=== PATIENT | male | born 1995 | race Caucasian/White ===

== ENCOUNTER 2024-12-19 17:00 | Emergency (ER) | payer OTHER, SELFPAY ==
--- NOTE | ~2024-12-19 | XR_ITS ---
EXAMINATION: XR knee RT 3V, 12/19/2024 17:15 CDT HISTORY: Nontraumatic knee pain COMPARISON: No comparisons available. Findings: No acute fracture or malalignment. No significant degenerative changes. Soft tissues unremarkable. Impression: No acute fracture or malalignment. Reviewed, dictated and finalized at location P. Impression: No acute fracture or malalignment.
[2024-12-19 17:00] VITALS: BP 139/91; PULSE 84; RESP 18; TEMP 36.4; O2SAT 99
--- NOTE | 2024-12-19 17:20 | ED.LOWEXIN ---
HPI - Extremity Injury (Lower) General Chief Complaint: Extremity Injury, Lower Stated Complaint: right knee pain Time Seen by Provider: 12/19/24 17:14 Source: patient Mode of arrival: ambulatory Limitations: no limitations History of Present Illness HPI Narrative: Patient complaining of right knee pain for the last 9 months got worse over the last month, patient is telling me that he been working hard and long hours for months. He denies any specific trauma. History of right knee surgery 15 years ago, bone spur. Patient report feeling pain at the back of the right knee and anterior medially only when he flex the knee and goes up stairs. Patient reports working too much and long hours for long time, physical job Patient denies any fever, chills, nausea, vomiting Patient's significant other telling me that they came to our emergency room because he does not have a family physician Related Data Allergies Allergy/AdvReac Type Severity Reaction Status Date / Time No Known Allergies Allergy Verified 12/19/24 17:18 Review of Systems Review of Systems: All systems reviewed & are unremarkable except as noted in HPI and below Exam Narrative: General appearance: Well-developed, well-nourished Skin: Normal color Head: Normocephalic, nontraumatic Eyes: Clear conjunctiva Musculoskeletal: Right knee exam showed probably slightly swollen compared to the left 1 otherwise no bruises, no deformity, no rash, no erythema, , limited flexion up to 70 degree Neurologic: Alert and oriented ?3, [employer] is normal as tested, no gross motor deficit Course Vital Signs Vital signs: Vital Signs Temperature 36.4 C L 12/19/24 17:00 Pulse Rate 84 12/19/24 17:00 Respiratory Rate 18 12/19/24 17:00 Blood Pressure 139/91 H 12/19/24 17:00 Pulse Oximetry 99 12/19/24 17:00 Oxygen Delivery Room Air 12/19/24 17:00 Temperature 36.4 C L 12/19/24 17:00 Pulse Rate 84 12/19/24 17:00 Respiratory Rate 18 12/19/24 17:00 Blood Pressure 139/91 H 12/19/24 17:00 Pulse Oximetry 99 12/19/24 17:00 Oxygen Delivery Room Air 12/19/24 17:00 MDM - Extremity Injury (Lower) MDM Narrative Medical decision making narrative: Patient came with chronic right knee pain, worse over the last 4 weeks No specific trauma Vital signs are stable Physical examination as above Differential diagnosis include patellofemoral pain syndrome, meniscus tear, iliotibial band syndrome, hamstring strain, arthritis, strain/sprain Differential Diagnosis Differential diagnosis: Likely other (As above) Imaging Data Radiologist's impression: Impressions Knee X-Ray 12/19/24 17:27 Impression: No acute fracture or malalignment. Critical Care Time Critical Care Time Critical Care Time: No Discharge Plan Discharge Clinical Impression: Knee pain Patient Disposition: Home Condition: Stable Instructions: Knee Pain (ED) Additional Instructions: Return if symptoms are worsening , call orthopedic for appointment, take Tylenol as as needed for aches and pain, continue home medications. Patient Language: Tunisian Prescriptions: New naproxen [Naprosyn] 500 mg tablet 500 mg PO BID PRN (Reason: pain) Qty: 20 0RF Follow-up/Referrals: Den Pedroza MD [Physician, Orthopedics] - 12/20/24 Fabricio Lopez MD [Physician, Internal Medicine]
--- NOTE | 2024-12-19 17:38 | PC.NURSE ---
PT REFUSED KNEE IMMOBILIZER
== END 2024-12-19 17:41 | disposition home or self-care (01) ==
LOC: CHSED 17:32
PROVIDERS: Emergency Provider Emergency Medicine; Referring Provider Internal Medicine
DX: M25.561 Pain in right knee (principal)
CPT/HCPCS: 73562; 99283

== ENCOUNTER 2024-12-28 14:06 | Outpatient (CLI) | payer OTHER, SELFPAY ==
[2024-12-28 14:20] LABS: Hematocrit 44.9 % (40.0-54.0); Hemoglobin 14.8 g/dL (14.0-18.0); Immature Granulocyte Percent A 0.3 % (0.0-0.0); Lymphocytes Absolute Auto 2.53 K/mm3 (1.10-4.50); Mean Corpuscular HGB Conc 33.0 g/dL (32-36); Mean Corpuscular Hemoglobin 28.6 pg (27.0-31.0); Mean Corpuscular Volume 86.8 fL (78.0-102.0); Nucleated Red Blood Cells Absolute Auto 0.00 K/mm3 (0.00-0.00); Nucleated Red Blood Cells Perc 0.0 % (0-0.0); Platelet Count Result 257 K/mm3 (150-420); Red Blood Count 5.17 M/mm3 (4.70-6.10); White Blood Count 7.5 K/mm3 (4.8-10.8)
[2024-12-28 15:42] LABS: Alanine Aminotransferase 28 U/L (6-50); Albumin Level 5.3 g/dL (3.5-5.1); Alkaline Phosphatase 84 U/L (38-126); Anion Gap 11 mmol/L (4-12); Aspartate Amino Transferase 28 U/L (17-59); Bilirubin,Total 1.2 mg/dL (0.2-1.3); Blood Urea Nitrogen 20 mg/dL (9-20); Calcium 9.9 mg/dL (8.4-10.2); Carbon Dioxide 30 mmol/L (22-30); Chloride 105 mmol/L (98-107); Cholesterol 195 mg/dL (0-200); Estimated Glomerular Filt Rate > 60; Glucose 76 mg/dL (65-110); HDL Direct 35 mg/dL; Osmolality Calculated 303 mOsm/kg (285-295); Potassium 4.2 mmol/L (3.4-5.0); Sodium 146 mmol/L (137-145); Total Protein 8.4 g/dL (6.3-8.2); Triglycerides 217 mg/dL (<150)
== END 2024-12-28 14:07 | disposition home or self-care (01) ==
LOC: CHSLAB 14:07
PROVIDERS: PCP Family Medicine; Visit Provider Family Medicine
DX: Z00.00 Encounter for general adult medical examination without abnormal findings (principal)
CPT/HCPCS: 36415; 80053; 80061; 85025